=== PATIENT | male | born 1985 | race Caucasian/White ===

== ENCOUNTER 2017-10-12 21:04 | Emergency (ER) | payer MEDICAID ==
[~2017-10-12] VITALS: Ht 193 cm; Wt 99.8 kg
--- NOTE | 2017-10-12 21:06 | ED.ADGEN ---
Adult General Chief Complaint Chief Complaint " I was out at [employer] [place]... and snow boarding... and went down and mess the Lt wrist up .. 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 Distal cap refill is more than 3 seconds. Complaint tingling in fingers. Patient can partially move fingers. Patient is right-hand dominant. No other injuries reported. Patient did eat at 1600 hrs. and drink 2 beers just before fall. Pt. normally healthy. Pt. has had previous injury to same wrist. Review of Systems Review of Systems Constitutional: Denies fever or chills [] Eyes: Denies change in visual acuity, redness, or eye pain [] HENT: Denies nasal congestion or sore throat [] Respiratory: Denies cough or shortness of breath [] Cardiovascular: No additional information not addressed in HPI [] GI: Denies abdominal pain, nausea, vomiting, bloody stools or diarrhea [] : Denies dysuria or hematuria [] Musculoskeletal: Denies back pain or joint pain []Except finding in Lt wrist. Integument: Denies rash or skin lesions [] Neurologic: Denies headache, focal weakness or sensory changes [] Endocrine: Denies polyuria or polydipsia [] All other systems were reviewed and found to be within normal limits, except as documented in this note. Family History Family History Non-contributory to present illness. Current Medications Current Medications Current Medications Medications (Trade) Dose Ordered Sig/Amie Start Time Stop Time Status Last Admin Dose Admin Ketamine HCl 100 mg 1X ONCE 10/12/17 21:30 10/12/17 21:32 DC 10/12/17 21:30 100 MG Lactated Ringer's 1,000 ml @ 1,000 mls/hr Q1H 10/12/17 21:30 10/12/17 22:29 DC 10/12/17 21:30 1,000 MLS/HR Midazolam HCl (Versed) 5 mg STK-MED ONCE 10/12/17 22:31 10/12/17 22:32 DC Morphine Sulfate (Morphine 10mg Syringe) 10 mg 1X ONCE 10/12/17 21:30 10/12/17 21:31 DC 10/12/17 21:30 10 MG Ondansetron HCl (Zofran) 8 mg 1X ONCE 10/12/17 21:30 10/12/17 21:31 DC 10/12/17 21:30 8 MG See Nursing for home meds Allergies Allergies Allergies Coded Allergies Type Severity Reaction Last Updated Verified No Known Drug Allergies 10/12/17 No Physical Exam Physical Exam Constitutional: Well developed, well nourished, in acute distress, non-toxic appearance. [] HENT: Normocephalic, atraumatic, bilateral external ears normal, oropharynx moist, no oral exudates, nose normal. [] Eyes: PERRLA, EOMI, conjunctiva normal, no discharge. [] Neck: Normal range of motion, no tenderness, supple, no stridor. [] Cardiovascular:Heart rate regular rhythm, no murmur [] Lungs & Thorax: Bilateral breath sounds clear to auscultation [] Abdomen: Bowel sounds normal, soft, no tenderness, no masses, no pulsatile masses. [] Skin: Warm, diaphoretic, no erythema, no rash. [] Back: No tenderness, no CVA tenderness. [] Extremities: No tenderness, no cyanosis, no clubbing, ROM intact, no edema. [] Except findings in Lt Wrist. Neurologic: Alert and oriented X 3, normal motor function, normal sensory function, no focal deficits noted. [] Psychologic: Affect normal, judgement normal, mood normal. [] Current Patient Data Lab Results Laboratory Tests Test 10/12/17 21:30 White Blood Count 18.1 x10^3/uL (4.0-11.0) H Red Blood Count 4.86 x10^6/uL (4.30-5.70) Hemoglobin 15.1 g/dL (13.0-17.5) Hematocrit 43.6 % (39.0-53.0) Mean Corpuscular Volume 90 fL (79-100) Mean Corpuscular Hemoglobin 31 pg (25-35) Mean Corpuscular Hemoglobin Concent 35 g/dL (31-37) Red Cell Distribution Width 12.5 % (11.5-14.5) Platelet Count 369 x10^3/uL (140-400) Neutrophils (%) (Auto) 80 % (31-73) H Lymphocytes (%) (Auto) 13 % (24-48) L Monocytes (%) (Auto) 6 % (0-9) Eosinophils (%) (Auto) 1 % (0-3) Basophils (%) (Auto) 0 % (0-3) Neutrophils # (Auto) 14.5 x10^3uL (1.8-7.7) H Lymphocytes # (Auto) 2.3 x10^3/uL (1.0-4.8) Monocytes # (Auto) 1.1 x10^3/uL (0.0-1.1) Eosinophils # (Auto) 0.1 x10^3/uL (0.0-0.7) Basophils # (Auto) 0.1 x10^3/uL (0.0-0.2) Segmented Neutrophils % 74 % (35-66) H Band Neutrophils % 1 % (0-9) Lymphocytes % 11 % (24-48) L Atypical Lymphocytes % (Manual) 8 % (0-0) H Monocytes % 6 % (0-10) Platelet Estimate Adequate (ADEQUATE) Prothrombin Time 10.4 SEC (9.4-11.4) Prothrombin Time INR 1.0 (0.9-1.1) PTT 23 SEC (23-33) Sodium Level 138 mmol/L (136-145) Potassium Level 3.1 mmol/L (3.5-5.1) L Chloride Level 99 mmol/L (98-107) Carbon Dioxide Level 30 mmol/L (21-32) Anion Gap 9 (6-14) Blood Urea Nitrogen 11 mg/dL (8-26) Creatinine 1.1 mg/dL (0.7-1.3) Estimated GFR (Cockcroft-Gault) 78.6 Glucose Level 97 mg/dL (70-99) Calcium Level 9.3 mg/dL (8.5-10.1) EKG EKG [] Radiology/Procedures Radiology/Procedures My interpretation of left wrist film shows a comminuted fracture of left distal radius.[] Course & Med Decision Making Course & Med Decision Making Pertinent Labs and Imaging studies reviewed. (See chart for details) Procedure report- Splinting of Lt. wrist with sedation. Risks discussed. See flow sheet. Ketamine used for air way protection and because of recent intake fluids. Pt. tolerated the procedure well. Pt. splinted with return of less 2 second capillary return. Distal median, ulnar and radial nerve function appear intact. Pt. keep arm elevated, splint and sling. Follow up jeanine Muro II. call 9 am sunday. Return if any concerns. Tylenol and Ibuprofen for pain. Vicoprofen marked pain. Reduce compression wrap cyanotic or marked finger edema. Must keep arm elevated above heart. Discussed presentation, testing and tx. plan with Dr. Cota. [] Final Impression Final Impression 1. Fracture dislocation left wrist[] Problems: Dragon Disclaimer Dragon Disclaimer This electronic medical record was generated, in whole or in part, using a voice recognition dictation system. BUBBA GARVEY MD Oct 12, 2017 21:06
[2017-10-12] MEDS ORDERED: MORPHINE SULFATE 10 MG/ML SYRINGE. SQ ONE (21:30)
[2017-10-12] MEDS ORDERED: ONDANSETRON PF 4 MG/2 ML VIAL. IV ONE (21:30)
[2017-10-12] MEDS: KETAMINE HCL 500 MG/10 ML VIAL. IV ONE ×2 (21:30→22:30)
[2017-10-12] MEDS ORDERED: IV RINGERS SOLUTION,LACTATED 1,000 ML IV SCH (21:30)
[2017-10-12 22:20] VITALS: BP 139/72
[2017-10-12 22:24] LABS: BASO # 0.1 x10^3/uL (0.0-0.2); BASO % 0 % (0-3); CALCIUM 9.3 mg/dL (8.5-10.1); CREATININE 1.1 mg/dL (0.7-1.3); EOS # 0.1 x10^3/uL (0.0-0.7); EOS % 1 % (0-3); GFR 78.6; HEMATOCRIT 43.6 % (39.0-53.0); HEMOGLOBIN 15.1 g/dL (13.0-17.5); LYMPH # 2.3 x10^3/uL (1.0-4.8); LYMPH % 13 % (24-48); MEAN CORPUSCULAR HEMOGLOBIN 31 pg (25-35); MEAN CORPUSCULAR HGB CONC 35 g/dL (31-37); MEAN CORPUSCULAR VOLUME 90 fL (79-100); MONO # 1.1 x10^3/uL (0.0-1.1); MONO % 6 % (0-9); NEUT # 14.5 x10^3uL (1.8-7.7); NEUT % 80 % (31-73); PLATELET COUNT 369 x10^3/uL (140-400); POTASSIUM 3.1 mmol/L (3.5-5.1); RED BLOOD COUNT 4.86 x10^6/uL (4.30-5.70); RED CELL DISTRIBUTION WIDTH 12.5 % (11.5-14.5); WHITE BLOOD COUNT 18.1 x10^3/uL (4.0-11.0)
[2017-10-12] MEDS ORDERED: MIDAZOLAM HCL PF 5 MG/5 ML VIAL. ONE (22:31)
[2017-10-12] MEDS ORDERED: HYDR-79 PO ×2 (22:47→23:20)
[2017-10-12 23:25] LABS: % ATYL 8 % (0-0); % BANDS 1 % (0-9); % LYMPHS 11 % (24-48); % MONOS 6 % (0-10); % SEGS 74 % (35-66); PLT ESTIMATE ADEQUATE (ADEQUATE)
[2017-10-13] MEDS ORDERED: KETAMINE HCL 500 MG/10 ML VIAL. IV ONE (07:00)
[2017-10-13] MEDS ORDERED: MIDAZOLAM HCL PF 5 MG/5 ML VIAL. IV ONE (07:00)
--- NOTE | 2017-10-13 08:15 | RAD ---
EXAM: 1. Left wrist 3 views 2154. 2. Left wrist 2 views 2246. HISTORY: Fall with left wrist injury. COMPARISON: None. FINDINGS: The initial examination demonstrates a highly comminuted fracture of the distal radius with 30 degrees dorsal angulation of the distal radial articular surface and 1 cm posterior displacement. There is intra-articular extension along the lunate fossa and what appears to be a sagittal plane. A small avulsion fracture is also noted at the tip of the ulnar styloid. Radiocarpal and intercarpal alignments are preserved. Soft tissue swelling is noted. The 2nd image demonstrates placement of a splint. Alignment is slightly improved with residual dorsal displacement and angulation of the distal radial fragment. IMPRESSION: 1. Comminuted intra-articular dorsally angulated and displaced fracture of the distal radius. Dorsal angulation and displacement persists after splinting. 2. Small ulnar styloid avulsion.
== END 2017-10-13 00:10 | disposition home or self-care (01) ==
LOC: ER 21:04
DX: S62.102A Fracture of unspecified carpal bone, left wrist, initial encounter for closed fracture (principal); X58.XXXA Exposure to other specified factors, initial encounter; Y93.23 Activity, snow (alpine) (downhill) skiing, snowboarding, sledding, tobogganing and snow tubing; Y99.8 Other external cause status; Y92.89 Other specified places as the place of occurrence of the external cause
CPT/HCPCS: 29125; 36415; 73100; 73110; 80048; 85007; 85025; 85610; 85730; 96361; 96372; 96374; 96375; 99285; J2250; J2270; J2405; J3490; J7120; 99152; 99153